=== PATIENT | female | born 1955 | race Caucasian/White ===

== ENCOUNTER → 2021-07-21 | Outpatient (CLI) | payer MEDICARE ==
[~2021-07-21] MED LIST: ATENOLOL50 MG PO; DIFLUCAN200 MG PO; PYRIDIUM200 MG PO; VIBRAMYCIN100 MG PO; VICODIN ES 7501 TAB PO; [UNRECOGNIZED DRUG - CODE]
== END | disposition home or self-care (01) ==
LOC: ORTHO 01:14
PROVIDERS: ATTEND Orthopaedic Surgery
DX: M25.511 Pain in right shoulder (principal)

== ENCOUNTER → 2023-03-08 | Outpatient (CLI) | payer MEDICARE | END | disposition home or self-care (01) | LOC: RAD 13:30 | PROVIDERS: ATTEND Family Medicine | DX: M81.0 Age-related osteoporosis without current pathological fracture (principal) ==

== ENCOUNTER 2023-04-13 11:42 | Emergency (ER) | payer MEDICARE ==
[~2023-04-13] VITALS: Ht 162.5 cm; Wt 67.6 kg
[2023-04-13] MEDS ORDERED: IROSPAN 24/6 T1 EACH PO (12:02)
[2023-04-13] MEDS ORDERED: ATENOLOL25 MG PO (12:02)
[2023-04-13] MEDS ORDERED: DICLOFENAC SOD50 MG PO (12:02)
[2023-04-13] MEDS ORDERED: ACYCLOVIR800 MG PO ×3 (12:44→14:03)
[2023-04-13] MEDS ORDERED: HYDROCODONE-AC1 EAC1 PO (14:07)
== END 2023-04-13 13:13 | disposition home or self-care (01) ==
LOC: ED 11:42
DX: B02.9 Zoster without complications (principal); Z79.899 Other long term (current) drug therapy; Z98.84 Bariatric surgery status